=== PATIENT | female | born 1960 | race Caucasian/White ===

== ENCOUNTER 2020-09-16 12:53 | Emergency (ER) | payer OTHER, SELFPAY ==
--- NOTE | 2020-09-16 13:31 | XR_ITS ---
EXAMINATION: XR KNEE, RIGHT CLINICAL INFORMATION: Pain. COMPARISON: None TECHNIQUE: AP and lateral views of the right knee. FINDINGS: Tiny medial and patellofemoral compartment marginal osteophytes. No osseous erosion. No fracture or dislocation. Trace joint effusion. No abnormal soft tissue calcification. XR/XR knee RT 2V IMPRESSION: Mild medial and patellofemoral compartment osteoarthritis. Trace joint effusion.
[2020-09-16 13:51] VITALS: BP 147/89; PULSE 90; RESP 16; TEMP 36.2; O2SAT 96; BMI 31.3
--- NOTE | 2020-09-16 15:59 | ED_ITS ---
HPI - Extremity Injury (Lower) General Chief Complaint: Extremity Injury, Lower Stated Complaint: knee pain Time Seen by Provider: 09/16/20 13:31 History of Present Illness HPI Narrative: Patient complains of pain without injury in the left knee for several days, worst pain is with walking up and down stairs, and it is relieved by laying down Related Data Previous Rx's Medication Instructions Recorded ibuprofen 800 mg PO Q8H PRN #20 tab 09/16/20 oxycodone 2.5 mg PO Q6H PRN #10 cap 09/16/20 Allergies Allergy/AdvReac Type Severity Reaction Status Date / Time varenicline [From Chantix] Allergy Mild HEADACHES Verified 09/16/20 13:54 Review of Systems Review of Systems: Positive for left knee pain negative for There is no fever no chills no dizziness no weakness no calf pain no injury no redness or warmth, patient is able to walk, no chest pain no shortness of breath Yes all other systems are reviewed and are negative ON LICENSE OF [facility] Past Medical History ON LICENSE OF [facility] Narrative: No relevant medical history, does not recall any prior knee injury, no alcohol no drugs Social History Social History Advance Directives: No Advance Directives Information Provided: No Physical Exam Vital Signs: Vital Signs: Last Vital Signs Temp 97.2 F 09/16/20 13:51 Pulse 90 09/16/20 13:51 Resp 16 09/16/20 13:51 BP 147/89 H 09/16/20 13:51 Pulse Ox 96 09/16/20 13:51 Body Mass Index 31.3 General appearance no distress, comfortable cooperative The the head is normocephalic atraumatic neck is supple the respiratory no distress the extremity exam there is no calf tenderness on either leg no calf swelling The left knee is tender medially and superior to the knee joint and over the patella the worst tenderness is just above the patella, no effusion no redness no warmth extends to 180, there is no evidence of quadriceps or patellar deficit, it flexes to around 90 and then becomes painful and the patient can walk on it with a limp, skin is intact no wounds no redness no warmth The neuro exam no motor or sensory deficit Course Course Course Narrative: X-ray showed some arthritis in the area of discomfort and patient is discharged to follow with Orthopedics Discharge Plan Discharge Clinical Impression: Osteoarthritis of left knee Qualifiers: Osteoarthritis type: primary Qualified Code(s): M17.12 - Unilateral primary osteoarthritis, left knee Patient Disposition: Home, Self-Care Additional Instructions: X-ray showed arthritic changes in the knee and the area that hurts the most above the kneecap Follow with orthopedist for further evaluation Return any time if worse You can take the Motrin as well as extra-strength Tylenol which is available [id number] for maximum non narcotic pain relief Prescriptions: New ibuprofen 800 mg tablet 800 mg PO Q8H PRN (Reason: pain) Qty: 20 RF: 0 oxycodone 5 mg capsule 2.5 mg PO Q6H PRN (Reason: pain) Qty: 10 RF: 0 Stand Alone Forms: Work/School Release Interventions: ED Discharge Assessment Last Done: 09/16/20 14:55 Discharge Date/Time: 09/16/20 14:45
== END 2020-09-16 14:45 | disposition home or self-care (01) ==
PROVIDERS: Emergency Provider Emergency Medicine; PCP Family Medicine
DX: M17.0 Bilateral primary osteoarthritis of knee (principal); M25.561 Pain in right knee; M25.562 Pain in left knee; Z79.899 Other long term (current) drug therapy
CPT/HCPCS: 73560; 99283

== ENCOUNTER 2024-12-14 06:46 | Day surgery (SDC) | payer MEDICARE, SELFPAY ==
[2024-12-09 11:28] VITALS: BMI 32.8
--- NOTE | 2024-12-10 09:13 | HO.ANESPROP2 ---
Documented by User: Catherine Hong NP 12/10/24 09:13 HPI - Anesthesia Eval Consult details Narrative: 64yo F for Colonoscopy Anesthesia Pre-Procedure Meds Is the patient on any of the following meds?: GLP1/DPP4 PMFSH Past Medical History Medical History GERD (gastroesophageal reflux disease) Hyperlipidemia HTN (hypertension) Surgical History Surgical History Hx of foot surgery Hx of total knee replacement H/O colonoscopy Social History Social History Household Members: Spouse Patient Tobacco Use Status: Never used Tobacco Use of substances other than those prescribed or required for medical reasons: No Are you DNR?: No Advance Directives: No Advance Directives Information Provided: Yes Meds Allergies Allergy/AdvReac Type Severity Reaction Status Date / Time varenicline [From Chantix] Allergy Mild HEADACHES Verified 09/16/20 13:54 Home Medications ?Medication ?Instructions ?Recorded ?Confirmed ?Last Taken ?Type citalopram 20 mg tablet 20 mg PO DAILY 12/09/24 12/14/24 Unknown History hydrochlorothiazide 25 mg tablet 25 mg PO DAILY 12/09/24 12/14/24 Unknown History nystatin 100,000 unit/gram topical 1 appl topical BID-TID 12/09/24 12/14/24 Unknown History powder omeprazole 20 mg capsule,delayed 20 mg PO NEEDED 12/09/24 12/14/24 Unknown History release pravastatin 80 mg tablet 80 mg PO DAILY 12/09/24 12/14/24 Unknown History semaglutide (weight loss) 0.25 0.25 mg subcut QWEEK 12/09/24 12/14/24 12/07/24 History mg/0.5 mL subcutaneous pen injector (Alexandre) sulindac 200 mg tablet 200 mg PO BID 12/09/24 12/14/24 Unknown History valsartan 80 mg tablet 80 mg PO DAILY 12/09/24 12/14/24 12/14/24 06:00 History Exam Height,Weight and Vital Signs: Height 5 ft 3 in Weight 84.085 kg Assessment and Plan Assessment Anesthesia Assessment: Chart Reviewed Documented by User: Will Chavez MD 12/14/24 09:14 [facility] Past Medical History Medical History GERD (gastroesophageal reflux disease) Hyperlipidemia HTN (hypertension) Family History Family history of problems with anesthesia: No Surgical History Surgical History Hx of foot surgery Hx of total knee replacement H/O colonoscopy History of Problems with Anesthesia: No Social History Social History Household Members: Spouse Patient Tobacco Use Status: Never used Tobacco Use of substances other than those prescribed or required for medical reasons: No Are you DNR?: No Advance Directives: No Advance Directives Information Provided: Yes Meds Allergies Allergy/AdvReac Type Severity Reaction Status Date / Time varenicline [From Chantix] Allergy Mild HEADACHES Verified 09/16/20 13:54 Home Medications ?Medication ?Instructions ?Recorded ?Confirmed ?Last Taken ?Type citalopram 20 mg tablet 20 mg PO DAILY 12/09/24 12/14/24 Unknown History hydrochlorothiazide 25 mg tablet 25 mg PO DAILY 12/09/24 12/14/24 Unknown History nystatin 100,000 unit/gram topical 1 appl topical BID-TID 12/09/24 12/14/24 Unknown History powder omeprazole 20 mg capsule,delayed 20 mg PO NEEDED 12/09/24 12/14/24 Unknown History release pravastatin 80 mg tablet 80 mg PO DAILY 12/09/24 12/14/24 Unknown History semaglutide (weight loss) 0.25 0.25 mg subcut QWEEK 12/09/24 12/14/24 12/07/24 History mg/0.5 mL subcutaneous pen injector (Alexandre) sulindac 200 mg tablet 200 mg PO BID 12/09/24 12/14/24 Unknown History valsartan 80 mg tablet 80 mg PO DAILY 12/09/24 12/14/24 12/14/24 06:00 History Exam Airway Denture: Upper and Lower Assessment and Plan Assessment Anesthesia Assessment: Anesthesia Plan Discussed Final Anesthetic Review Family History of Problems with Anesthesia: No History of Problems with Anesthesia: No NPO: Yes ASA Class: III Final Preanesthetic Review: No Changes in Pt Med Stat, Meds/Allgs Chart Reviewed, Consent Obtained/Reviewed and Anes Risks/Benef Reviewed Patient Risk: Intermediate Procedure Risk: Low Anesthetic Plan Anesthetic Plan: MAC: Disposition: Standard PACU
[2024-12-14 07:20] VITALS: BMI 31.0
[2024-12-14 07:27] VITALS: BP 112/70; PULSE 88; RESP 16; TEMP 37.1; O2SAT 95
[2024-12-14] MEDS: Lactated Ringers 1,000 ML 100 ML IVCONT (07:49)
--- NOTE | 2024-12-14 08:13 | MHC.SHP ---
Pre-Procedural Eval Section A - 24 Hr Update-Section A only Date of Service: 12/14/24 Section B - Complete if H&P > 30 days Chief Complaint: Encounter for screening for malignant neoplasm of Details of Present Illness: see H&P no chagnes Relevant Family History (Specify if Yes): No Relevant Social History: None Present Medications: see Short Stay Collaborative assessment Medical History: No relevant PMH History of Previous Operations: No relevant previous surgery Allergies: Allergies Allergy/AdvReac Type Severity Reaction Status Date / Time varenicline [From Chantix] Allergy Mild HEADACHES Verified 09/16/20 13:54 Review of Systems Sugical H&P ROS: Negative: Constitution, Cardiovascular, Respiratory, Neurological, Psychiatric, Hem-Onc, Allergic/Immunologic, Gastrointestinal, Genitourinary, Musculoskeletal, Integumentary, Endocrine and Eyes/Ears/Nose/Throat Exam Surgical H&P Exam: Normal: HEENT, Normal: Heart, Normal: Lungs, Normal: Extremities, Normal: Abdomen, Normal: Skin and Normal: Neurological Plan Diagnosis/Plan: Unchanged I have reviewed the history and physical and performed a pertinent physical examination on my patient. No changes have occurred unless specified. Time Spent With Patient Time: Total time managing care of this patient today ____ minutes.
[2024-12-14 08:50] VITALS: BP 91/55; PULSE 78; RESP 18; TEMP 36.2; O2SAT 94
[2024-12-14 09:05] VITALS: BP 116/72; PULSE 70; RESP 18; TEMP 36.4; O2SAT 97
--- NOTE | 2024-12-14 09:16 | OP_ITS ---
DATE OF SERVICE: 12/14/2024 SURGEON: Patel Guo MD INDICATIONS: Colon cancer screening. PREOPERATIVE DIAGNOSIS: POSTOPERATIVE DIAGNOSIS: PROCEDURE PERFORMED: Colonoscopy to the terminal ileum with snare polypectomy. ESTIMATED BLOOD LOSS: COMPLICATIONS: ANESTHESIA: Monitored anesthesia care. ASSISTANTS: SPECIMENS: DESCRIPTION OF PROCEDURE: A history and physical was performed. The risks and benefits of the procedure were explained to the patient, and informed consent was obtained. The patient was placed in the left lateral decubitus position. A digital rectal exam was performed and was found to be normal. The Olympus pediatric video colonoscope was introduced into the rectum and advanced to the cecum. The cecum was identified by transillumination, palpation, and identification of ileocecal valve examination was performed. The scope was removed. She tolerated the procedure well and was returned to the recovery area in stable condition. FINDINGS: The terminal ileum was examined and appeared normal. The visualized colonic mucosa was normal. The quality of the prep was good. A single polyp was identified and removed with a hot snare. This measured approximately 8 mm. It was located at 45 cm. No other polyps were identified. There was mild sigmoid diverticulosis. Retroflexed examination showed small internal hemorrhoids. IMPRESSION: Colon polyp. RECOMMENDATION: Follow up the biopsy results. MD PRASHANTH Wyman/ALDOL / [id number]
== END 2024-12-14 09:15 | disposition home or self-care (01) ==
PROVIDERS: PCP Family Medicine; Visit Provider Internal Medicine Gastroenterology
PROC: 0DJD8ZZ Inspection of Lower Intestinal Tract, Via Natural or Artificial Opening Endoscopic (ICD-10-PCS; CPT 45378; principal; 2024-12-14 08:20)
DX: Z12.11 Encounter for screening for malignant neoplasm of colon (principal); Z86.0101 Personal history of adenomatous and serrated colon polyps; D12.5 Benign neoplasm of sigmoid colon; K57.30 Diverticulosis of large intestine without perforation or abscess without bleeding; K64.8 Other hemorrhoids; R14.0 Abdominal distension (gaseous); K21.9 Gastro-esophageal reflux disease without esophagitis; I10 Essential (primary) hypertension; E78.5 Hyperlipidemia, unspecified; Z79.85 Long-term (current) use of injectable non-insulin antidiabetic drugs; Z79.899 Other long term (current) drug therapy; Z96.659 Presence of unspecified artificial knee joint; Z88.8 Allergy status to other drugs, medicaments and biological substances
CPT/HCPCS: 45385; 88305; J2003; J2704